=== PATIENT | female | born 1935 | race Hispanic/Latino ===

== ENCOUNTER 2022-07-31 14:45 | Inpatient (IN) | payer MEDICARE ==
[2022-07-31] MEDS ORDERED: ONDANSETRON 4 MG/2 ML INJ IV PRN ×2 (15:26→21:31)
[2022-07-31] MEDS ORDERED: oxyCODONE /ACETAMINOPHEN 5-325MG TAB PO PRN (15:26)
[2022-07-31] MEDS ORDERED: ACETAMINOPHEN 325 MG TAB PO PRN ×2 (15:26→21:31)
[2022-07-31] MEDS: D5W/0.9% NACL 1,000 ML IV SCH (18:19)
[2022-07-31] MEDS ORDERED: METOCLOPRAMIDE 10 MG/2 ML INJ IV PRN (21:31)
[2022-07-31] MEDS: risperiDONE 1 MG TAB PO SCH (23:15)
[2022-07-31] MEDS: FAMOTIDINE 20 MG TAB PO SCH (23:15)
[2022-08-01] MEDS: D5W/0.9% NACL 1,000 ML IV SCH ×3 (04:40→22:19)
--- NOTE | 2022-08-01 06:57 | History and Physical Report ---
History of Present Illness Date of examination: 07/31/22 Date of admission: 07/31/22 15:51 Chief complaint: Failure to thrive and progressive dementia History of present illness: 86-year-old female with progressive dementia resulting in not able to take care of her ADLs and poor p.o. intake. Patient has a tendency to wander around. Patient being admitted for failure to thrive. No fever or chills. Patient was admitted as a direct admit from [facility]. Patient known to me. On Risperdal for dementia with agitation. Also dehydrated. Labs were requested but not done. At the time of my H&P. No fever or chills. Family wants longterm facility placement. Patient also needs mental health consult and possible [facility] admission. Patient recently had COVID and was treated with Paxlovid. Past History Past Medical History: other (Dementia with agitation.) Past Surgical History: No surgical history Social history: full code, other (Lives in personallongterm.) Family history: no significant family history Medications and Allergies Allergies Allergy/AdvReac Type Severity Reaction Status Date / Time morphine Allergy Unknown Unverified 07/31/22 14:47 Home Medications Medication Instructions Recorded Confirmed Last Taken Type Nirmatrelvir/Ritonavir [Paxlovid 300 each PO DAILY 07/31/22 07/31/22 Unknown History 150-100 mg Pack (Eua)] risperiDONE [RisperDAL] 2 mg PO DAILY 07/31/22 07/31/22 Unknown History Active Meds: Active Medications Acetaminophen (Acetaminophen 325 Mg Tab) 650 mg PO Q4H PRN PRN Reason: Pain MILD(1-3)/Fever >100.5/LLANES Famotidine (Famotidine 20 Mg Tab) 20 mg PO BID [facility] Last Admin: 07/31/22 23:15 Dose: 20 mg Dextrose/Sodium Chloride (D5ns) 1,000 mls @ 100 mls/hr IV DIRECT [facility] Last Admin: 07/31/22 18:19 Dose: 100 mls/hr Metoclopramide HCl (Metoclopramide 10 Mg/2 Ml Inj) 10 mg IV Q6H PRN PRN Reason: Nausea And Vomiting Ondansetron HCl (Ondansetron 4 Mg/2 Ml Inj) 4 mg IV Q8H PRN PRN Reason: Nausea And Vomiting Oxycodone/Acetaminophen (Oxycodone /Acetaminophen 5-325mg Tab) 1 tab PO Q6H PRN PRN Reason: Pain, Moderate (4-6) Risperidone (Risperidone 1 Mg Tab) 2 mg PO DAILY [facility] Last Admin: 07/31/22 23:15 Dose: 2 mg Sodium Chloride (Sodium Chloride 0.9% 10 Ml Flush Syringe) 10 ml IV BID [facility] Last Admin: 07/31/22 23:15 Dose: 10 ml Sodium Chloride (Sodium Chloride 0.9% 10 Ml Flush Syringe) 10 ml IV PRN PRN PRN Reason: LINE FLUSH Exam - Constitutional Vitals: Temp Pulse Resp BP Pulse Ox 97.7 F 64 18 124/52 96 07/31/22 23:05 07/31/22 23:05 07/31/22 23:05 07/31/22 23:05 07/31/22 23:05 General appearance: Present: no acute distress, well-nourished - EENT Eyes: Present: PERRL ENT: hearing intact, clear oral mucosa - Neck Neck: Present: supple, normal ROM - Respiratory Respiratory effort: normal Respiratory: bilateral: CTA - Cardiovascular Heart rate: 78 Rhythm: regular Heart Sounds: Present: S1 & S2. Absent: rub, click - Extremities Extremities: pulses symmetrical, No edema Peripheral Pulses: within normal limits - Abdominal General gastrointestinal: Present: soft, non-tender, non-distended, normal bowel sounds Female genitourinary: Present: normal - Rectal Rectal Exam: deferred - Integumentary Integumentary: Present: clear, warm, dry - Musculoskeletal Musculoskeletal: generalized weakness - Psychiatric Psychiatric: other (Alert but not oriented.) - Neurologic Neurologic: CNII-XII intact, moves all extremities - Allied Health Allied health notes reviewed: nursing, case management Results Blackwell/IV: Voiding Method Incontinent Assessment and Plan Advance Directives: Yes (Full code) VTE prophylaxis?: Chemical Plan of care discussed with patient/family: Yes - Patient Problems (1) Failure to thrive Current Visit: Yes Status: Acute Qualifiers: Failure to thrive age range: in adult Qualified Code(s): R62.7 - Adult failure to thrive Plan to address problem: IV fluids for now To discussed with daughter about PEG tube Poor p.o. intake Subacute rehab placement Mental health/psych consult (2) Dehydration Current Visit: Yes Status: Acute Plan to address problem: IV fluids for now (3) Agitation due to dementia Current Visit: Yes Status: Acute Plan to address problem: On Risperdal Negative and/psych consult (4) DVT prophylaxis Current Visit: Yes Status: Acute Plan to address problem: On heparin and GI prophylaxis (5) Advance care planning Current Visit: Yes Status: Acute Plan to address problem: Could not be done Will reach out to family. Phone number is [phone] to discuss about CODE STATUS and PEG tube and selective placement.
[2022-08-01] MEDS ORDERED: METOCLOPRAMIDE 10 MG/2 ML INJ IV PRN (08:00)
--- NOTE | 2022-08-01 08:44 | Progress Note ---
Assessment and Plan Assessment and plan: 86-year-old female with progressive dementia resulting in not able to take care of her ADLs and poor p.o. intake. Patient has a tendency to wander around. Patient being admitted for failure to thrive. No fever or chills. [facility] Patient known to me. On Risperdal for dementia with agitation. Also dehydrated. Labs were requested but not done. At the time of my H&P. No fever or chills. Family wants fdc facility placement. Patient also needs mental health consult and possible [facility] admission. Patient recently had COVID and was treated with Paxlovid. Past History Past Medical History: other (Dementia with agitation.) Past Surgical History: No surgical history Social history: full code, other (Lives in personalcorrection.) Family history: no significant family history 08/01: Patient seen and examined with multiple bodily wounds dependent. Right upper extremity edema. Will obtain ultrasound of the right upper extremity to rule out DVT. Speech has been consulted. Patient is not opposed to PEG placement if required, although she has dementia and not sure how much she und erstands. I have discussed with case management about subacute rehab placement PT OT evaluation is pending. Wound care consultation has been put in place. Aspiration precaution. Discussed with the patients son, who tells me that the mother has never wanted a PEG placed even years ago when she had a Hip surgery. He will speak to the rest of the family about Hospice and is ok placing hospice consult pending family discussion. 35 Advance directive counselling. - Patient Problems (1) Failure to thrive Current Visit: Yes Status: Acute Qualifiers: Failure to thrive age range: in adult Qualified Code(s): R62.7 - Adult failure to thrive Plan to address problem: IV fluids for now To discussed with daughter about PEG tube Poor p.o. intake Subacute rehab placement Mental health/psych consult (2) Dehydration Current Visit: Yes Status: Acute Plan to address problem: IV fluids for now (3) Agitation due to dementia Current Visit: Yes Status: Acute Plan to address problem: On Risperdal Negative and/psych consult (4) Severe protein calorie malnutrition with evidence and poor healing wounds (5) Diffused multiple body wounds, sacral wounds, heal wounds, - Present on admission (6) DVT prophylaxis Current Visit: Yes Status: Acute Plan to address problem: On heparin and GI prophylaxis (7) Advance care planning Current Visit: Yes Status: Acute Plan to address problem: Could not be done Will reach out to family. Phone number is [phone] to discuss about CODE STATUS and PEG tube and selective placement. History Interval history: Patient seen and examined resting comfortably no new complaints at this time. Hospitalist Physical - Physical exam Narrative exam: VITAL SIGNS: Reviewed. GENERAL: The patient appears normally developed, lethargic soft-spoken but responsive vital signs as documented. HEAD: No signs of head trauma. EYES: Pupils are equal. Extraocular motions intact. EARS: Hearing grossly intact. MOUTH: Oropharynx is normal. NECK: No adenopathy, no JVD. CHEST: Chest with clear breath sounds bilaterally. No wheezes, rales, or rhonchi. CARDIAC: Regular rate and rhythm. S1 and S2, without murmurs, gallops, or rubs. VASCULAR: Right upper extremity +2 edema. Peripheral pulses normal and equal in all extremities. ABDOMEN: Soft, non tender and non distended. No rebound or guarding, and no masses palpated. Bowel Sounds normal. MUSCULOSKELETAL: Good range of motion of all major joints. Extremities without clubbing, cyanosis. Noted right upper extremity +2 edema. NEUROLOGIC EXAM: Awake, lethargic and oriented x 3 No focal sensory or strength deficits. Speech soft. Follows commands. PSYCHIATRIC: Mood normal. SKIN: Multiple skin lesions as documented detail exam as documented in skin assessment - Constitutional Vitals: Temp Pulse Resp BP Pulse Ox 97.7 F 64 18 124/52 96 07/31/22 23:05 07/31/22 23:05 07/31/22 23:05 07/31/22 23:05 07/31/22 23:05 General appearance: Present: no acute distress, well-nourished Results - Labs CBC & Chem 7: 08/01/22 09:15 08/01/22 09:15 Blackwell/IV: Voiding Method Incontinent Active Medications - Current Medications Current Medications: Generic Name Dose Route Start Last Admin Trade Name Freq PRN Reason Stop Dose Admin Acetaminophen 650 mg 07/31/22 15:26 Acetaminophen 325 Mg Tab PO Q4H PRN Pain MILD(1-3)/Fever >100.5/LLANES Famotidine 20 mg 07/31/22 22:00 07/31/22 23:15 Famotidine 20 Mg Tab PO 20 mg BID WILLA Administration Dextrose/Sodium Chloride 1,000 mls @ 100 mls/hr 07/31/22 16:00 08/01/22 04:40 D5ns IV 100 mls/hr DIRECT WILLA Administration Metoclopramide HCl 5 mg 08/01/22 08:00 Metoclopramide 10 Mg/2 Ml Inj IV Q6H PRN Nausea And Vomiting Ondansetron HCl 4 mg 07/31/22 15:26 Ondansetron 4 Mg/2 Ml Inj IV Q8H PRN Nausea And Vomiting Oxycodone/Acetaminophen 1 tab 07/31/22 15:26 Oxycodone /Acetaminophen 5-325mg Tab PO Q6H PRN Pain, Moderate (4-6) Risperidone 2 mg 07/31/22 21:45 07/31/22 23:15 Risperidone 1 Mg Tab PO 2 mg DAILY WILLA Administration Sodium Chloride 10 ml 07/31/22 22:00 07/31/22 23:15 Sodium Chloride 0.9% 10 Ml Flush Syringe IV 10 ml BID WILLA Administration Sodium Chloride 10 ml 07/31/22 15:26 Sodium Chloride 0.9% 10 Ml Flush Syringe IV PRN PRN LINE FLUSH
[2022-08-01 10:20] LABS: Basophils # (Auto) 0.1 K/mm3 (0.0-0.1); Basophils % (Auto) 0.7 % (0.0-1.8); Eosinophils % (Auto) 0.4 % (0.0-4.3); Hemoglobin 11.1 gm/dl (10.1-14.3); Lymphocytes # (Auto) 0.7 K/mm3 (1.2-5.4); Lymphocytes % (Auto) 6.2 % (13.4-35.0); Mean Corpuscular HGB Conc 32 % (30-34); Mean Corpuscular Volume 85 fl (79-97); Monocytes # (Auto) 0.7 K/mm3 (0.0-0.8); Monocytes % (Auto) 6.9 % (0.0-7.3); Platelet Count 193 K/mm3 (140-440); Red Blood Count 4.14 M/mm3 (3.65-5.03); Red Cell Distribution Width 14.5 % (13.2-15.2)
[2022-08-01 10:31] LABS: Alanine Aminotransferase 17 units/L (7-56); Albumin 2.4 g/dL (3.9-5); Blood Urea Nitrogen 25 mg/dL (7-17); Calcium 8.5 mg/dL (8.4-10.2); Hemolysis Index 2
[2022-08-01 10:33] LABS: BUN/Creatinine Ratio 50
--- NOTE | 2022-08-01 10:59 | Vascular Lab Report ---
DUPLEX DOPPLER UPPER EXTREMITY VENOUS, RIGHT INDICATION / CLINICAL INFORMATION: dvt swelling. TECHNIQUE: Duplex doppler imaging was performed through the veins of the right upper extremity using venous comp ression and other maneuvers. COMPARISON: None available. FINDINGS: RIGHT INTERNAL JUGULAR VEIN: Negative. RIGHT SUBCLAVIAN VEIN: Negative. RIGHT AXILLARY VEIN: Negative. RIGHT BRACHIAL VEIN: Negative. RIGHT FOREARM VEINS: Negative. RIGHT BASILIC VEIN (SUPERFICIAL): Negative. ADDITIONAL FINDINGS: None. IMPRESSION: 1. No sonographic evidence for DVT. Signer Name: Tai Lima MD Signed: 08/01/2022 10:55 AM Workstation Name: [id number]
[2022-08-01] MEDS: FAMOTIDINE 20 MG TAB PO SCH ×2 (11:11→22:20)
[2022-08-01] MEDS: risperiDONE 1 MG TAB PO SCH (11:11)
--- NOTE | 2022-08-01 12:03 | Consultation ---
History of Present Illness - Reason for Consult Consult date: 08/01/22 Reason for consult: Agitation - Chief Complaint Chief complaint: Failure to thrive and progressive dementia - History of Present Psychiatric Illness 86-year-old female with progressive dementia resulting in not able to take care of her ADLs and poor p.o. intake. Patient has a tendency to wander around. Patient being admitted for failure to thrive. No fever or chills. Patient was admitted as a direct admit from [facility]. Patient known to me. On Risperdal for dementia with agitation. Also dehydrated. Labs were requested but not done. At the time of my H&P. No fever or chills. Family wants long term facility placement. Patient also needs mental health consult and possible [facility] admission. Patient recently had COVID and was treated with Paxlovid. The patient is an 86 year old female with history of dementia; consulted for agitation. The patient was seen today with the nurse at the bedside. The patient is calm, alert and oriented x2. She is inaudible and mumbles. She states she is doing fine. She denies any current suicidal/homicidal ideation and denies hallucinations. PAST PSYCHIATRIC HISTORY: PAST MEDICAL HISTORY: Family Psychiatric History: None reported SOCIAL HISTORY REVIEW OF SYSTEMS Constitutional: Negative for weight loss ENT: Negative for stridor Respiratory: Negative for cough or hemoptysis All other systems reviewed and are negative MENTAL STATUS Assessment Treatment Plan Continue home medications The patient is to get first dose of meds prior to leaving. Benefits and possible SE were explained to patient. She verbalizes understanding. Risks, benefits and alternatives of medications discussed with the patient, questions answered and consent obtained from patient. PSYCHOTHERAPY: Supportive psychotherapy provided MEDICAL: Per primary team DELIRIUM PRECAUTIONS: Please re-orient patient frequently, keep lights on during the day, and minimize benzodiazepines and opiates as these medications could w orsen patient's confusion. OPHTHALMOLOGY ASSISTANT: Defer to primary DISPOSITION: Do not recommend acute inpatient psychiatric hospitalization at this time. Radiography Technician will provide patient with psychiatric outpatient resources. FOLLOW-UP: Will sign off Thank you for the consult. Please contact with any questions and/or concerns Case discussed with Dr. Kirby who agrees with current disposition Medications and Allergies Medications and Allergies Allergies Allergy/AdvReac Type Severity Reaction Status Date / Time morphine Allergy Unknown Unverified 07/31/22 14:47 Home Medications Medication Instructions Recorded Confirmed Last Taken Type Nirmatrelvir/Ritonavir [Paxlovid 300 each PO DAILY 07/31/22 07/31/22 Unknown History 150-100 mg Pack (Eua)] risperiDONE [RisperDAL] 2 mg PO DAILY 07/31/22 07/31/22 Unknown History Active Meds: Active Medications Acetaminophen (Acetaminophen 325 Mg Tab) 650 mg PO Q4H PRN PRN Reason: Pain MILD(1-3)/Fever >100.5/LLANES Famotidine (Famotidine 20 Mg Tab) 20 mg PO BID [facility] Last Admin: 08/01/22 11:11 Dose: 20 mg Dextrose/Sodium Chloride (D5ns) 1,000 mls @ 100 mls/hr IV DIRECT [facility] Last Admin: 08/01/22 04:40 Dose: 100 mls/hr Metoclopramide HCl (Metoclopramide 10 Mg/2 Ml Inj) 5 mg IV Q6H PRN PRN Reason: Nausea And Vomiting Ondansetron HCl (Ondansetron 4 Mg/2 Ml Inj) 4 mg IV Q8H PRN PRN Reason: Nausea And Vomiting Oxycodone/Acetaminophen (Oxycodone /Acetaminophen 5-325mg Tab) 1 tab PO Q6H PRN PRN Reason: Pain, Moderate (4-6) Risperidone (Risperidone 1 Mg Tab) 2 mg PO DAILY [facility] Last Admin: 08/01/22 11:11 Dose: 2 mg Sodium Chloride (Sodium Chloride 0.9% 10 Ml Flush Syringe) 10 ml IV BID [facility] Last Admin: 08/01/22 11:11 Dose: 10 ml Sodium Chloride (Sodium Chloride 0.9% 10 Ml Flush Syringe) 10 ml IV PRN PRN PRN Reason: LINE FLUSH Mental Status Exam - Vital signs Last Vital Signs Temp 97.7 F 07/31/22 23:05 Pulse 64 07/31/22 23:05 Resp 18 07/31/22 23:05 BP 124/52 07/31/22 23:05 Pulse Ox 96 07/31/22 23:05 Results Result Diagrams: 08/01/22 09:15 08/01/22 09:15 Abnormal lab results 08/01/22 08/01/22 Range/Units 09:15 09:15 MCH 27 L (28-32) pg Lymph % (Auto) 6.2 L (13.4-35.0) % Lymph # (Auto) 0.7 L (1.2-5.4) K/mm3 Seg Neutrophils % 85.8 H (40.0-70.0) % Seg Neutrophils # 9.2 H (1.8-7.7) K/mm3 BUN 25 H (7-17) mg/dL Creatinine 0.5 L (0.6-1.2) mg/dL Glucose 140 H (65-100) mg/dL Total Protein 4.9 L (6.3-8.2) g/dL Albumin 2.4 L (3.9-5) g/dL All other labs normal.
[2022-08-01 12:23] LABS: Band Neutrophils # (Manual) 0.1 K/mm3; Basophils % (Manual) 0 % (0.0-1.8); Total Cells Counted 100
[2022-08-01 12:24] LABS: Burr Cells 1+; Ovalocytes 1+; Platelet Estimate Consistent w Auto
[2022-08-02 05:08] LABS: Hematocrit 32.2 % (30.3-42.9); Hemoglobin 10.4 gm/dl (10.1-14.3); Mean Corpuscular HGB Conc 32 % (30-34); Mean Corpuscular Volume 84 fl (79-97); Platelet Count 171 K/mm3 (140-440); Red Blood Count 3.84 M/mm3 (3.65-5.03); Red Cell Distribution Width 14.8 % (13.2-15.2)
[2022-08-02 05:28] LABS: Blood Urea Nitrogen 19 mg/dL (7-17); Calcium 7.8 mg/dL (8.4-10.2); Hemolysis Index 1
[2022-08-02 05:32] LABS: BUN/Creatinine Ratio 48
[2022-08-02] MEDS: FAMOTIDINE 20 MG TAB PO SCH ×2 (10:13→21:53)
[2022-08-02] MEDS: risperiDONE 1 MG TAB PO SCH (10:13)
--- NOTE | 2022-08-02 10:45 | Discharge Summary ---
Providers - Providers Date of Admission: 07/31/22 15:51 Attending physician: JULIO BERKOWITZ MD 07/31/22 19:36 Physical Therapy Evaluation and Treat [CONS] Routine Comment: Reason For Exam: weakness 07/31/22 19:37 Occupational Therapy Evaluate and Treat [CONS] Routine Comment: Reason For Exam: weakness Speech Therapy Evaluation and Treat [CONS] Routine Reason For Exam: evaluate swalloing 07/31/22 19:38 Consult to Dietitian/Nutrition [CONS] Routine Physician Instructions: Reason For Exam: Reason for Consult: Poor oral intake 07/31/22 21:31 Consult to Physician [CONS] Routine Comment: Consulting Provider: FATMATA HELM Physician Instructions: Reason For Exam: Dementia with agitation 08/01/22 07:10 Consult to Wound/ET Nurse [CONS] Routine Reason For Exam: wound eval 08/01/22 07:15 Consult to Mental Health [CONS] Routine Reason For Exam: Dementia with agitation Consult to Physician [CONS] Routine Comment: Consulting Provider: FATMATA HELM Physician Instructions: Reason For Exam: Dementia with agitation Primary care physician: FARM MARKETER Hospitalization Reason for admission: failure to thrive Hospital course: 86-year-old female with progressive dementia resulting in not able to take care of her ADLs and poor p.o. intake. Patient has a tendency to wander around. Patient being admitted for failure to thrive. No fever or chills. Patient was admitted as a direct admit from [facility]. Patient known to me. On Risperdal for dementia with agitation. Also dehydrated. Labs were requested but not done. At the time of my H&P. No fever or chills. Family wants halfway facility placement. Patient also needs mental health consult and possible [facility] admission. Patient recently had COVID and was treated with Paxlovid. Past History Past Medical History: other (Dementia with agitation.) Past Surgical History: No surgical history Social history: full code, other (Lives in personalalf.) Family history: no significant family history 08/01: Patient seen and examined with multiple bodily wounds dependent. Right upper extremity edema. Will obtain ultrasound of the right upper extremity to rule out DVT. Speech has been consulted. Patient is not opposed to PEG placement if required, although she has dementia and not sure how much she understands. I have discussed with case management about subacute rehab placement PT OT evaluation is pending. Wound care consultation has been put in place. Aspiration precaution. Discussed with the patients son, who tells me that the mother has never wanted a PEG placed even years ago when she had a Hip surgery. He will speak to the rest of the family about Hospice and is ok placing hospice consult pending family discussion. 35 Advance directive counselling. 08/02: I discussed with the family, they will like DNR, orders placed, they also agreed with Hospice, they want to make sure that their mom at what ever facility is given attention. - Patient Problems (1) Failure to thrive Current Visit: Yes Status: Acute Qualifiers: Failure to thrive age range: in adult Qualified Code(s): R62.7 - Adult failure to thrive Plan to address problem: IV fluids for now To discussed with daughter about PEG tube Poor p.o. intake Subacute rehab placement Mental health/psych consult (2) Dehydration Current Visit: Yes Status: Acute Plan to address problem: IV fluids for now (3) Agitation due to dementia Current Visit: Yes Status: Acute Plan to address problem: On Risperdal Negative and/psych consult (4) Severe protein calorie malnutrition with evidence and poor healing wounds (5) Diffused multiple body wounds, sacral wounds, heal wounds, - Present on admission (6) UNSTAGEABLE PRESSURE WOUNDS.-POA (7) Right upper ext hemiparesis- POA Advance care planning patient made a DNR I discussed with the nursing staff we will also call the family to confirm. Disposition: 50 HOSPICE/HOME Final Discharge Diagnosis (Prints w/discharge instructions): (1) Failure to thrive. (2) Dehydration. (3) Agitation due to dementia. . (4) Severe protein calorie malnutrition with evidence and poor healing wounds. (5) Diffused multiple body wounds, sacral wounds, heal wounds, - Present on admission. (6) UNSTAGEABLE PRESSURE WOUNDS.-POA. (7) Right upper ext hemiparesis- POA Time spent for discharge: 35 mins Core Measure Documentation - Palliative Care Palliative Care/ Comfort Measures: Hospice Care Exam - Physical Exam Narrative exam: VITAL SIGNS: Reviewed. GENERAL: The patient appears normally developed, lethargic soft-spoken but responsive vital signs as documented. HEAD: No signs of head trauma. EYES: Pupils are equal. Extraocular motions intact. EARS: Hearing grossly intact. MOUTH: Oropharynx is normal. NECK: No adenopathy, no JVD. CHEST: Chest with clear breath sounds bilaterally. No wheezes, rales, or rhonchi. CARDIAC: Regular rate and rhythm. S1 and S2, without murmurs, gallops, or rubs. VASCULAR: Right upper extremity +2 edema. Peripheral pulses normal and equal in all extremities. ABDOMEN: Soft, non tender and non distended. No rebound or guarding, and no masses palpated. Bowel Sounds normal. MUSCULOSKELETAL: Good range of motion of all major joints except right upper extremity limited movement. Extremities without clubbing, cyanosis. Noted right upper extremity +2 edema. NEUROLOGIC EXAM: Awake, lethargic and oriented x 3 No focal sensory or strength deficits. Speech soft. Follows commands. PSYCHIATRIC: Mood normal. SKIN: Multiple skin lesions as documented detail exam as documented in skin assessment - Constitutional Vitals: Temp Pulse Resp BP Pulse Ox 98.1 F 72 16 111/51 96 08/02/22 04:20 08/02/22 04:20 08/02/22 04:20 08/02/22 04:20 08/02/22 04:20 Plan Activity: advance as tolerated, fall precautions Diet: regular Wound: per wound nurse instructions Care Plan Goals: For management per hospice team Follow up with: PRIMARY CARE, [Primary Care Provider] - 7 Days Prescriptions: Famotidine [Pepcid] 20 mg PO BID #60 tablet
[2022-08-02] MEDS: D5W/0.9% NACL 1,000 ML IV SCH (15:08)
[2022-08-03] MEDS: D5W/0.9% NACL 1,000 ML IV SCH ×2 (06:33→09:07)
[2022-08-03] MEDS: risperiDONE 1 MG TAB PO SCH (09:15)
[2022-08-03] MEDS: FAMOTIDINE 20 MG TAB PO SCH (09:15)
[2022-08-03 12:00] VITALS: BP 125/60
== END 2022-08-03 12:35 | disposition hospice, inpatient (51) | DRG 640 ==
LOC: 3A 14:45 → UNDOADMIN 14:45 → 3A 15:51
PROVIDERS: ADMIT Internal Medicine; ATTEND Student in an Organized Health Care Education/Training Program
DX: E86.0 Dehydration (principal); E43 Unspecified severe protein-calorie malnutrition; G81.91 Hemiplegia, unspecified affecting right dominant side; R62.7 Adult failure to thrive; Z20.822 Contact with and (suspected) exposure to COVID-19; Z66 Do not resuscitate; F03.90 Unspecified dementia, unspecified severity, without behavioral disturbance, psychotic disturbance, mood disturbance, and anxiety; Z51.5 Encounter for palliative care; Z88.5 Allergy status to narcotic agent; Z68.26 Body mass index [BMI] 26.0-26.9, adult; L89.150 Pressure ulcer of sacral region, unstageable; L89.600 Pressure ulcer of unspecified heel, unstageable
CPT/HCPCS: 36415; 80048; 80053; 85007; 85025; 85027; G0378; J3490; J7042; U0003